=== PATIENT | female | born 2000 | race Caucasian/White ===

== ENCOUNTER 2021-08-05 23:47 | Emergency (ER) | payer MEDICAID, OTHER ==
[~2021-08-05] VITALS: Ht 160 cm; Wt 37.6 kg
[2021-08-06 02:46] VITALS: BP 115/82
[2021-08-06] MEDS ORDERED: ONDANSETRON ODT 4 MG TAB PO ONE (03:45)
[2021-08-06] MEDS ORDERED: ACETAMINOPHEN 500 MG TAB PO ONE (03:45)
[2021-08-06] MEDS ORDERED: BACLOFEN 10 MG TAB PO ONE (03:45)
[2021-08-06] MEDS ORDERED: IBUPROFEN 800 MG TAB PO ONE (03:45)
== END 2021-08-06 05:05 | disposition home or self-care (01) ==
LOC: ER 23:48
DX: S13.4XXA Sprain of ligaments of cervical spine, initial encounter (principal); S39.012A Strain of muscle, fascia and tendon of lower back, initial encounter; M25.511 Pain in right shoulder; M25.512 Pain in left shoulder; M25.551 Pain in right hip; M25.552 Pain in left hip; M62.830 Muscle spasm of back; M62.838 Other muscle spasm; V49.59XA Passenger injured in collision with other motor vehicles in traffic accident, initial encounter; Y93.89 Activity, other specified; Y92.410 Unspecified street and highway as the place of occurrence of the external cause; Y99.8 Other external cause status
CPT/HCPCS: 99283; Q0162